=== PATIENT | male | born 2000 | race Caucasian/White ===

== ENCOUNTER 2018-05-10 12:44 | Inpatient (IN) | payer OTHER ==
--- NOTE | 2018-05-10 12:57 | EDPHY ---
H & P Stated Complaint: Time Seen by Provider: 05/10/18 12:51 HPI/ROS: CHIEF COMPLAINT: Suicidal ideation, depression HISTORY OF PRESENT ILLNESS: 17-year-old male via police on an M1 hold for complaints of increasing depression with suicidal ideation with plan to jump off a bridge. He wrote a suicide note last evening. Prior history of suicide attempt via laceration of wrists. No recent attempts. No self-injurious behavior. REVIEW OF SYSTEMS: 10 systems reviewed and negative with the exception of the elements mentioned in the history of present illness PAST MEDICAL & SURGICAL HISTORY: Depression. Suicide attempt in past SOCIAL HISTORY: Denies acute alcohol or drug use PHYSICAL EXAM (Prior to examination, patient consented to physical exam, hands were washed and my usual and customary physical exam procedures followed) 1) GENERAL: Well-developed, well-nourished, alert and oriented. Withdrawn, depressed flat affect 2) HEAD: Normocephalic, atraumatic 3) HEENT: Pupils equal, round, reactive to light bilaterally. Sclera anicteric. 4) NECK: Full range of motion, no meningeal signs. 5) LUNGS: Clear auscultation bilaterally, no wheezes, no rhonchi, no retractions. 6) HEART: Regular rate and rhythm, no murmur, no heave, no gallop. 7) ABDOMEN: No guarding, no rebound, no focal tenderness,, 8) MUSCULOSKELETAL: Moving all extremities, no focal areas of tenderness, no obvious trauma. 9) BACK: No CVA tenderness, no midline vertebral tenderness, no fluctuance, no step-off, no obvious trauma, no visual or palpable abnormality. 10) SKIN: No rash, no petechiae. 11) Psychiatric: Patient is oriented X 3, withdrawn, depressed flat affect. DIFFERENTIAL DIAGNOSIS: In no particular order including but not limited to depression, suicidal ideation, homicidal ideation - Personal History Current Tetanus Diphtheria and Acellular Pertussis (TDAP): Yes - Medical/Surgical History Hx Asthma: No Hx Chronic Respiratory Disease: No Hx Diabetes: No Hx Cardiac Disease: No Hx Renal Disease: No Hx Cirrhosis: No Hx Alcoholism: No Hx HIV/AIDS: No Hx Splenectomy or Spleen Trauma: No Other PMH: depression - Social History Smoking Status: Never smoked Constitutional: Initial Vital Signs Temperature (C) 36.7 C 05/10/18 12:52 Heart Rate 84 05/10/18 12:52 Respiratory Rate 18 05/10/18 12:52 Blood Pressure 151/93 H 05/10/18 12:52 O2 Sat (%) 100 05/10/18 12:52 O2 Delivery Mode Room Air Allergies/Adverse Reactions: No Known Allergies Allergy (Unverified 05/10/18 12:52) Home Medications: Medication Instructions Recorded Effexor Xr 05/10/18 Medical Decision Making ED Course/Re-evaluation: 12:56 p.m.: Patient is on an M1 hold. He agrees to diagnostic studies which will be obtained and will consult with mental health dietitian chief. I saw this patient independently based on established practice protocols. Care of patient under supervision of secondary supervising physician Dr Ruiz. 2:50 p.m.: Informed by mental health dietitian chief Chele Arcos that patient has been accepted for transfer, [address] physician [address] Quiroga. EMTALA paperwork completed. - Data Points Laboratory Results: Laboratory Results 05/10/18 13:04 05/10/18 13:04 05/10/18 05/10/18 05/10/18 13:04 13:04 13:04 WBC 4.49 10^3/uL 10^3/uL (3.80-9.50) RBC 5.87 10^6/uL 10^6/uL (4.40-6.38) Hgb 17.0 g/dL g/dL (13.7-17.5) Hct 50.6 % % (40.0-51.0) MCV 86.2 fL fL (81.5-99.8) MCH 29.0 pg pg (27.9-34.1) MCHC 33.6 g/dL g/dL (32.4-36.7) RDW 13.1 % % (11.5-15.2) Plt Count 265 10^3/uL 10^3/uL (150-400) MPV 10.0 fL fL (8.7-11.7) Neut % (Auto) 48.8 % % (39.3-74.2) Lymph % (Auto) 40.1 % % (15.0-45.0) [place] % (Auto) 8.9 % % (4.5-13.0) Eos % (Auto) 0.9 % % (0.6-7.6) Baso % (Auto) 1.1 % % (0.3-1.7) Nucleat RBC Rel Count 0.0 % % (0.0-0.2) Absolute Neuts (auto) 2.19 10^3/uL 10^3/uL (1.70-6.50) Absolute Lymphs (auto) 1.80 10^3/uL 10^3/uL (1.00-3.00) Absolute Monos (auto) 0.40 10^3/uL 10^3/uL (0.30-0.80) Absolute Eos (auto) 0.04 10^3/uL 10^3/uL (0.03-0.40) Absolute Basos (auto) 0.05 10^3/uL 10^3/uL (0.02-0.10) Absolute Nucleated RBC 0.00 10^3/uL 10^3/uL (0-0.01) Immature Gran % 0.2 % % (0.0-1.1) Immature Gran # 0.01 10^3/uL 10^3/uL (0.00-0.10) Sodium 139 mEq/L mEq/L (135-145) Potassium 4.6 mEq/L mEq/L (3.3-5.0) Chloride 100 mEq/L mEq/L (97-110) Carbon Dioxide 29 mEq/l mEq/l (22-31) Anion Gap 10 mEq/L mEq/L (8-16) BUN 15 mg/dL mg/dL (7-23) Creatinine 0.8 mg/dL mg/dL (0.7-1.3) Estimated GFR > 60 Glucose 86 mg/dL mg/dL (70-100) Calcium 10.5 mg/dL H mg/dL (8.5-10.4) Salicylates < 1.0 mg/dL L mg/dL (2.0-20.0) Urine Opiates Screen NEGATIVE (NEGATIVE) Acetaminophen < 10 mcg/mL L mcg/mL (10-30) Urine Barbiturates NEGATIVE (NEGATIVE) Ur Phencyclidine Scrn NEGATIVE (NEGATIVE) Ur Amphetamine Screen NEGATIVE (NEGATIVE) U Benzodiazepines Scrn NEGATIVE (NEGATIVE) Urine Cocaine Screen NEGATIVE (NEGATIVE) U Marijuana (THC) Screen NON-NEGATIVE H (NEGATIVE) Ethyl Alcohol < 10 mg/dL mg/dL (0-10) Departure - Departure Disposition: [facility] IP Clinical Impression: Suicidal ideation, Severe major depression Condition: Fair Referrals: NONE *PRIMARY CARE P,. [Primary Care Provider] - As per Instructions
[2018-05-10 13:11] LABS: PLATELET COUNT 265 10^3/uL (150-400)
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
--- NOTE | 2018-05-10 15:18 | ASMTTCLDSP ---
TLC Discharge Disposition Disposition: Answers: Admit Disposition Notes: Notes: Admit to [facility] Discharge Concerns/Recommendations: Notes: In consultation with [facility] ED PA Foster Kirkpatrick, and on-call ASSISTANT TERMINAL MANAGERSherman, both concurred that pt appears to meet 27-65 criteria requiring psychiatric hospitalization as pt appears to be at risk of harm to self due to a mental illness condition. Pt was given the 3N prohibited belongings list while in the ED. Was patient given the Answers: Yes Inpatient Behavioral Health Prohibited Belongings List while in the ED? For inpatient [facility] admission, the following psychiatrist agreed to accept patient for admission to Behavioral Health ([facility]): Type of Hold: Answers: M1/72-hour Hold Hold initiated by: Answers: Psychiatrist Date Signed: 05/10/2018 03:18 PM Electronically Signed By:Bree Gunn
--- NOTE | 2018-05-10 19:42 | PDHOSCONS ---
History and Physical - Chief Complaint suicidal ideation - History of Present Illness Patient is a 17 year old with hx of MDD followed by an outpatient psychiatrist and presenting with suicidal ideation. He notes that he has been down for a while and that there have been "lots of things" happening recently that led him to want to end his life. He had written a suicide letter and shared with his psychiatrist who recommended he come to the hospital for likely hospitalization. He has had this in the past and has a hx of cutting but no serious prior attempts. He is otherwise feeling well physically and has no chronic medical issues. History Information - Allergies/Home Medication List Allergies/Adverse Reactions: No Known Allergies Allergy (Unverified 05/10/18 12:52) Home Medications: Effexor Xr 05/10/18 [Last Taken Unknown] I have personally reviewed and updated: family history, medical history, social history, surgical history - Past Medical History psychiatric history Additional medical history: MDD with hx of SI and SA - Surgical History Additional surgical history: thumb and hand surgery - Family History Additional family history: both parents with depression - Social History Smoking Status: Never smoked Alcohol Use: Rarely Drug Use: Marijuana Additional social history: originally from [employer], here for [place] Review of Systems Review of Systems: ROS: 10pt was reviewed & negative except for what was stated in HPI & below Physical Exam Physical Exam: Temp Pulse Resp BP Pulse Ox 36.8 C 94 14 125/68 H 97 05/10/18 15:31 05/10/18 17:07 05/10/18 17:07 05/10/18 17:07 05/10/18 17:07 Constitutional: no apparent distress, appears nourished Eyes: PERRL Ears, Nose, Mouth, Throat: moist mucous membranes Cardiovascular: regular rate and rhythym, no murmur, rub, or gallop Respiratory: no respiratory distress, no rales or rhonchi Gastrointestinal: normoactive bowel sounds, soft, non-tender abdomen Skin: warm, normal color Musculoskeletal: no muscle tenderness Neurologic: AAOx3 Psychiatric: interacting appropriately, depressed, flat affect, suicidal ideation Lab Data & Imaging Review 05/10/18 13:04 05/10/18 13:04 WBC 4.49 10^3/uL (3.80-9.50) 05/10/18 13:04 RBC 5.87 10^6/uL (4.40-6.38) 05/10/18 13:04 Hgb 17.0 g/dL (13.7-17.5) 05/10/18 13:04 Hct 50.6 % (40.0-51.0) 05/10/18 13:04 MCV 86.2 fL (81.5-99.8) 05/10/18 13:04 MCH 29.0 pg (27.9-34.1) 05/10/18 13:04 MCHC 33.6 g/dL (32.4-36.7) 05/10/18 13:04 RDW 13.1 % (11.5-15.2) 05/10/18 13:04 Plt Count 265 10^3/uL (150-400) 05/10/18 13:04 MPV 10.0 fL (8.7-11.7) 05/10/18 13:04 Neut % (Auto) 48.8 % (39.3-74.2) 05/10/18 13:04 Lymph % (Auto) 40.1 % (15.0-45.0) 05/10/18 13:04 [place] % (Auto) 8.9 % (4.5-13.0) 05/10/18 13:04 Eos % (Auto) 0.9 % (0.6-7.6) 05/10/18 13:04 Baso % (Auto) 1.1 % (0.3-1.7) 05/10/18 13:04 Nucleat RBC Rel Count 0.0 % (0.0-0.2) 05/10/18 13:04 Absolute Neuts (auto) 2.19 10^3/uL (1.70-6.50) 05/10/18 13:04 Absolute Lymphs (auto) 1.80 10^3/uL (1.00-3.00) 05/10/18 13:04 Absolute Monos (auto) 0.40 10^3/uL (0.30-0.80) 05/10/18 13:04 Absolute Eos (auto) 0.04 10^3/uL (0.03-0.40) 05/10/18 13:04 Absolute Basos (auto) 0.05 10^3/uL (0.02-0.10) 05/10/18 13:04 Absolute Nucleated RBC 0.00 10^3/uL (0-0.01) 05/10/18 13:04 Immature Gran % 0.2 % (0.0-1.1) 05/10/18 13:04 Immature Gran # 0.01 10^3/uL (0.00-0.10) 05/10/18 13:04 Sodium 139 mEq/L (135-145) 05/10/18 13:04 Potassium 4.6 mEq/L (3.3-5.0) 05/10/18 13:04 Chloride 100 mEq/L (97-110) 05/10/18 13:04 Carbon Dioxide 29 mEq/l (22-31) 05/10/18 13:04 Anion Gap 10 mEq/L (8-16) 05/10/18 13:04 BUN 15 mg/dL (7-23) 05/10/18 13:04 Creatinine 0.8 mg/dL (0.7-1.3) 05/10/18 13:04 Estimated GFR > 60 05/10/18 13:04 Glucose 86 mg/dL (70-100) 05/10/18 13:04 Calcium 10.5 mg/dL (8.5-10.4) H 05/10/18 13:04 Salicylates < 1.0 mg/dL (2.0-20.0) L 05/10/18 13:04 Urine Opiates Screen NEGATIVE (NEGATIVE) 05/10/18 13:04 Acetaminophen < 10 mcg/mL (10-30) L 05/10/18 13:04 Urine Barbiturates NEGATIVE (NEGATIVE) 05/10/18 13:04 Ur Phencyclidine Scrn NEGATIVE (NEGATIVE) 05/10/18 13:04 Ur Amphetamine Screen NEGATIVE (NEGATIVE) 05/10/18 13:04 U Benzodiazepines Scrn NEGATIVE (NEGATIVE) 05/10/18 13:04 Urine Cocaine Screen NEGATIVE (NEGATIVE) 05/10/18 13:04 U Marijuana (THC) Screen NON-NEGATIVE (NEGATIVE) H 05/10/18 13:04 Ethyl Alcohol < 10 mg/dL (0-10) 05/10/18 13:04 Assessment & Plan Assessment: Suicidal ideation (Acute) Severe major depression (Acute) 17 yo with hx of MDD here with worsening depression and SI # Suicidal ideation: patient to be admitted to IP psych service, no reason to defer any medication or treatment indicated by psychiatry service # MDD: as above # marijuana use: patient denies heavy use or hx of use disorder, will need to discuss further to determine if this is contributing to his presentation Thank you for this consultation. Medicine will be available should issues arise during his hospital stay.
[2018-05-10] MEDS ORDERED: MAG HYDROX/AL HYDROX/SIMETH 30 ML UDCUP PO PRN (20:11)
[2018-05-10] MEDS ORDERED: LORazepam 0.5 MG TAB PO PRN (20:11)
[2018-05-10] MEDS ORDERED: ACETAMINOPHEN 325 MG TAB PO PRN (20:11)
[2018-05-10] MEDS ORDERED: NICOTINE POLACRILEX 2 MG GUM B PRN (20:11)
[2018-05-10] MEDS ORDERED: MAGNESIUM HYDROXIDE 30 ML UDCUP PO PRN (20:11)
[2018-05-10] MEDS ORDERED: OLANZapine DISINTEGR 10 MG TAB PO PRN (20:11)
[2018-05-10] MEDS ORDERED: MELATONIN 3 MG TAB PO PRN (20:13)
--- NOTE | 2018-05-11 08:18 | ASMTBHMTP ---
Master Treatment Plan Master Treatment Plan Answers: Depressed Mood with for: Suicidal Ideation Date: 05/10/2018 Diagnosis on Admission: Major Depressive Disorder, Recurrent, Severe 296.33 (F33.2) Expected length of stay: 3-5 days Reason for admission: Notes: Per Report: Pt is a 17 year old single, male brought in on a M1 hold initiated by [facility]. Pt on a M1 hold due to suicidal ideation with a plan to jump off a bridge. Per documentation pt had wrote a suicide note last evening. Pt has a hx of self harming via laceration of wrists. Per M1 hold pt has a hx of severe depression and past self harm. He is presenting with increased depression and feeling suicidal. He wrote a suicide note last night. Not eating much. Ability to take care of self is declined. He is a high risk for self harm. Pt denied a prior hx of alcohol or drug use. Pt's utox was positive for marijuana. Pt reported daily marijuana use. Denied other substance abuse/use except for "social drinking" but did report at least 1 incident of a black out. Patient's stated presenting problems: Notes: "because I need help" Patient's goals for treatment: Notes: "to feel happy again." Patient's strengths: Notes: I am a caring person Identify supports outside of hospital: Notes: family and friends, my parents are on their way now to [place], [place] from [place]. Discharge criteria: Notes: Suicidal Ideation will resolve and patient will have a plan to safely manage recurrent suicidal ideaiton. Initial disposition plan/considerations: Notes: "to return to my apartment in [place], [place] Master Treatment Plan Required Signatures Psychiatrist signature: Answers: Psychiatrist: RN on-shift signature: Answers: RN: Patient signature: Answers: Patient: Date Signed: 05/11/2018 08:17 AM Electronically Signed By:Hernando Nicolas
[2018-05-11] MEDS ORDERED: VENLAFAXINE XR 75 MG CAP PO ONE (12:27)
[2018-05-11] MEDS ORDERED: ARIPiprazole 5 MG TAB PO ONE (12:27)
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
[2018-05-12 06:52] VITALS: BP 120/75
[2018-05-12] MEDS ORDERED: VENLAFAXINE XR 75 MG CAP PO SCH (09:00)
[2018-05-12] MEDS ORDERED: ARIPiprazole 5 MG TAB PO SCH (09:00)
--- NOTE | 2018-05-12 11:41 | ASMTBHFAM ---
Notes Note: Notes: Pt and CC met prior to family meeting. Pt. reports feeling "fine, feeling better". Pt. stated he didn't sleep well and woke up sore form the bed. Pt. reports eating well and attending some groups. Pt. reports no issues with his current medications. Pt. denied SI, HI, AVH and paranoia. Pt. stated he needs to figure out what he will be doing with school. Pt. stated he wants to keep working with his therapist and see her more often. 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 POC stated they and pt. have an appointment with student services to help the pt. transition back to school today at 3:00pm. POC stated pt. will now begin having therapy twice a week. POC stated pt's therapist is on vacation next week, but is willing to have a session over the phone if pt. wants. POC stated pt. puts a lot of pressure on himself, and pt. stated he is considering dropping a class. Pt. discussed needing better time management skills. Pt. stated he is not worried about using alcohol as this is something he knows makes him feel more depressed. POC will be in town until Tuesday, but are able to stay longer if pt. needs them. Date Signed: 05/12/2018 11:39 AM Electronically Signed By:Mandy Duggan
[2018-05-12] MEDS ORDERED: VENLAFAXINE XR 150 MG CAP PO ONE (12:27)
[2018-05-12] MEDS ORDERED: ARIPiprazole 5 MG TAB PO ONE (12:27)
--- NOTE | 2018-05-12 13:59 | BDS ---
REASON FOR ADMISSION: From the ED note dated 05/10/2018, the patient presented to the emergency department with police on an M1 hold for complaints of increasing depression with suicidal ideation, with plan to jump off a bridge. The patient wrote a suicide note last evening prior to presentation to the emergency department. The patient reported history of attempt. The patient reported no recent suicide attempts, no self-injurious behavior. The patient was admitted involuntarily on an M1 hold due to being a danger to himself. The patient was admitted for safety, crisis stabilization, and medication management. ADMITTING DIAGNOSES: 1. Major depressive disorder, recurrent, severe. 2. Cannabis use disorder, severe. ADMISSION PHYSICAL EXAM: The patient was seen on 05/10/2018 for a hospitalist H and P consult for medical clearance for inpatient psychiatric hospitalization. The patient was medically cleared for inpatient psychiatric hospitalization and treatment. For further details, please refer to hospitalist 's H and P consult dated 05/10/2018. ADMISSION LABS: CBC from 05/10/2018, within normal limits. BMP from 05/10/2018 , within normal limits. Hemoglobin A1c from 05/10/2018 was 5.2. Calcium was elevated at 10.5 from 05/10/2018. Liver function from 05/10/2018, within normal limits. Fasting lipid panel from 05/10/2018, within normal limits, except HDL cholesterol was elevated at 67. Toxicology screen from 05/10/2018 was non-negative for THC and negative for all other substances screened. Negative for ethyl alcohol. MAJOR PROCEDURES OR TESTS: None. HOSPITAL COURSE: The most prominent symptom and behavior while the patient was here was withdrawn. The patient reported moderate anxiety and depression symptoms. Treatment modalities utilized were milieu and group therapy. After reviewing options, risks and benefits, the patient agreed to trial of Abilify 5 mg p.o. daily to target mood symptoms, was tolerated with no report of side effects and with good response. The patient requested current dose of Effexor 300 mg p.o. daily to be tapered with a plan to discontinue on an outpatient basis. Effexor XR was tapered to 225 mg p.o. daily. This change was tolerated with no report of side effects. The patient has improved considerably, with no signs of psychiatric symptoms and no psychiatric symptoms expressed at discharge. The patient reports he has improved since admission, states to be in stable condition, feels safe to discharge, and he contracts for safety. Patient's response to treatment was good. There were no adverse or unexpected results of treatment. The patient was safe throughout his stay, active in treatment, attended and engaged in groups, and was appropriate with staff and other patients. The patient met with treatment team prior to discharge to assess readiness to discharge and review discharge plan. The treatment team consensus is the patient is in stable condition, has a safe discharge plan, and is ready to discharge today. CONDITION ON DISCHARGE: Patient is in stable condition and is no longer a danger to self or others, and is not gravely disabled due to mental illness. Patient is no longer in need of inpatient level of care, and can be safely and effectively treated within the community. The patients level of risk at time of discharge is low. MSE: The patient is casually dressed and with good hygiene , and looks stated age. Patient is sitting, posture is upright, and position is relaxed. Patient appears awake, alert, and responds appropriately and reasonably during interview. Patient is engaged, relates well to interviewer, and emotional facial expression is appropriate to situation and changes appropriately with topic. Patient is cooperative, makes comfortable eye contact , and movements are voluntary, deliberate, coordinated, and smooth and even with no inappropriate movements. Patient makes laryngeal sounds effortlessly and shares conversation appropriately; pace of conversation is appropriate, and stream of talking is fluent; articulation is clear and understandable; word choice is effortless and appropriate for education level; completes sentences, occasionally pausing to think; rate and volume are appropriate for interview and setting. Patient reports mood as euthymic. Patients affect is stable with full variable range, congruent with mood, and appropriate to speech and circumstances. Patient has linear and logical thinking, with no loose associations, tangential thought, thought blocking, concrete thinking, or any other signs of formal thought disorder. Patient denies suicidal and homicidal ideation, and denies hallucinations and delusions. Patient appears to be a reliable historian with sound judgement and good insight into current condition. Patient has no apparent dysfunction in recent or remote memory noted , and no evidence of gross cognitive dysfunction noted at any point during the interview. DISCHARGE DIAGNOSES: 1. Major depressive disorder, recurrent episode, severe. 2. Cannabis use disorder, severe. CURRENT MEDICATIONS: After reviewing options, risks and benefits with the patient, the patient agrees to continue Abilify 5 mg p.o. daily and Effexor XR 225 mg p.o. daily. The patient requests prescription for these medications at time of discharge. Prescriptions for 30 days are provided. The prescriptions are reviewed with the patient at time of discharge to ensure accuracy and patient understanding. DISPOSITION: The patient left hospital independently and voluntarily with his mother and father after discharge and plans to return to his apartment in [place]. Patient's parents also plan to stay in [place] and provide ongoing support for the patient. FOLLOWUP: employee wellness/fitness coordinator reports the appropriate outpatient follow-up services have been established and outpatient appointments have been scheduled. The patient received written instructions with times and dates of outpatient follow-up appointments. The following follow-up recommendations were provided to the patient at discharge: Continue psychotropic medications as prescribed and attend appointments as scheduled. Report any side effects to a psychiatric outpatient provider, a primary care provider, or other health hospice care consultant. Address any questions or problems concerning the psychotropic medications with a psychiatric outpatient provider, a primary care provider, or other health hospice care consultant. Contact [facility] or [facility], or go to the nearest emergency room, if you are ever a danger to yourself/others, or unable to care for yourself. As soon as possible, establish a routine medication management treatment with a psychiatric provider, establish routine therapy appointments, and follow-up with a primary care provider. LEGAL COURSE: The patient was admitted involuntarily for inpatient psychiatric hospitalization. The patient became voluntary during his stay, and patient discharged today independently and voluntarily. ATTITUDE AT TIME OF DISCHARGE: The patients attitude was positive at time of discharge, and patient reports looking forward to discharging today. The patient reports he feels safe to discharge, is no longer a danger to himself or others, is in stable condition, and contracts for safety. Patient states he will continue medications as prescribed, and establish medication management treatment with an outpatient provider after discharge. Patient reports he understands the information that has been provided to him, and he understands, accepts, and agrees to psychotropic medications. Patient describes internal protective factors as the coping skills he has learned while hospitalized here, and he plans to continue to practice these coping skills after discharge. Patient reports external protective factors as family, friends, and future. Patient describes looking forward to being with his mother and father after discharge. Patient describes future plans as graduate college. Patient reports he has completed Safety Plan and has reviewed Safety Plan with his nurse. Patient states his family and friends look forward to him discharging. FAMILY MEETING: This HUMAN RESOURCES TRAINEE and career development associate met with patient and patients parents prior to patient discharging to review patients discharge plan and assess for readiness to discharge. Patients parents report patient has a safe discharge plan and is safe to discharge. Patients parents report they plan to stay in [place] to support patient in his ongoing treatment. LABS AND STUDIES: There were no pending labs or studies at time of discharge. Due to patient's history of head injuries, the patient and patient's parents were provided recommendation for patient to follow up for a neuropsychology consult at , and patient plans to do so when he returns to his outpatient providers at . This recommendation was also discussed with the patient's father. The patient's father reports that the patient has had followup neuropsych testing following his head injury in October of 2016. Reports patient has had a full neuropsych evaluation including PET scan and MRI, and there were no abnormal findings. Father states that he will be sure that the patient does follow up with the patient's outpatient psychiatrist for further recommendations regarding a neuropsych consult. employee wellness/fitness coordinator to contact case management for referral for neuropsych evaluation. ADVANCE DIRECTIVES: There were no advance directives on file, and the patient was full code during this hospitalization. The following psychotropic medication treatment informed consent and recommendations were provided to the patient at time of discharge. Patient reports he understands, accepts, and agrees to the information that has been provided. PSYCHOTROPIC MEDICATION TREATMENT INFORMED CONSENT and RECOMMENDATIONS: Review nature of condition, diagnosis, and prognosis. Review nature and purpose of psychotropic medication treatment. Review type of psychotropic medications being prescribed. Review risk and benefits of psychotropic medication treatment. Review probable length of time will need to take medications. Review risk and benefits of not undergoing psychotropic medication treatment. Review alternative treatments to psychotropic medications. Review psychotropic medications contraindications, side effects, and importance of reporting any side effects to a psychiatric provider, primary care provider, or other health hospice care consultant. Review importance of her asking a psychiatric provider or primary care provider any questions or problems concerning the psychotropic medications. Review safety plan and the importance to contact [facility] or [facility] , or go to the nearest emergency room, if ever a danger to yourself/others, or unable to care for yourself. Recommend upon discharge to establish routine medication management treatment with a psychiatric provider, establish routine therapy appointments, and follow-up with a primary care provider. Verify patient understands, accepts, and agrees to the information that has been provided. SUICIDE ASSESSMENT FIVE-STEP EVALUATION AND TRIAGE (1) RISK FACTORS: (a) Suicidal behavior: history of attempt in high school (b) Current/past psychiatric disorders: Major Depressive Disorder, Cannabis Use Disorder (c) Oneill symptoms: none expressed or exhibited at time of discharge (d) Family history: none (e) Precipitants/Stressors/Interpersonal: none (f) Change in treatment: discharge from psychiatric hospital (g) Access to firearms: none (2) PROTECTIVE FACTORS: (a) Internal: coping skills learned while hospitalized (b) External: family, friends, and future (3) SUICIDAL INQUIRY: (a) Ideation: none (b) Plan: none (c) Behaviors: none; patient was safe throughout stay with no suicidal or parasuicidal behaviors (d) Intent: none (4) RISK LEVEL: Low: modifiable risk factors, strong protective factors; no suicidal or self-injurious ideation. Intervention: treatment plan to reduce symptoms including medications and therapy, provided emergency/crisis numbers, established follow-up plan, and supportive parents that traveled from [place] to with patient. /[id number]/[id number]
== END 2018-05-12 11:40 | disposition home or self-care (01) | DRG 885 ==
LOC: EEVIPCON 12:44 → BBEH 16:55
PROVIDERS: ADMIT Psychiatry & Neurology Psychiatry; ATTEND Psychiatry & Neurology Psychiatry
DX: F33.2 Major depressive disorder, recurrent severe without psychotic features (principal); F12.90 Cannabis use, unspecified, uncomplicated; F41.9 Anxiety disorder, unspecified
CPT/HCPCS: 80305; G0480